=== PATIENT | male | born 2000 | race Caucasian/White ===

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

== ENCOUNTER 2023-02-11 19:16 | Emergency (ER) | payer BC ==
[~2023-02-11] VITALS: Ht 177.8 cm; Wt 99.8 kg
[2023-02-11 19:56] VITALS: BP 123/68
== END 2023-02-11 23:11 | disposition home or self-care (01) ==
LOC: ER 19:16
DX: S82.65XA Nondisplaced fracture of lateral malleolus of left fibula, initial encounter for closed fracture (principal); X50.1XXA Overexertion from prolonged static or awkward postures, initial encounter
CPT/HCPCS: 29515; 73610; 99283-25